=== PATIENT | female | born 2000 | race Caucasian/White ===

== ENCOUNTER 2020-06-17 12:02 | Emergency (ER) | payer OTHER ==
[2020-06-17] MEDS ORDERED: SODIUM CHLORIDE 0.9% 500 ML INFUS.BAG IV ONE (12:19)
[2020-06-17 12:25] VITALS: BP 116/75; PULSE 86; TEMP 98.5; BMI 17.7
[2020-06-17 12:38] LABS: BASO % 2.7 % (0-2.0); EOS % 0.7 % (0-4.5); HEMOGLOBIN 13.4 GM/dl (10.7-15.3); LYMPH % 27.1 % (8-40); MCH 32.1 pg (25.7-33.7); MCHC 34.2 g/dl (32.0-36.0); MEAN CELL VOLUME 93.7 fl (80-96); MEAN PLT VOLUME 8.6 fl (7.5-11.1); MONO % 5.9 % (3.8-10.2); NEUT % 63.6 % (42.8-82.8); PLATELET COUNT 202 K/MM3 (134-434); RBC 4.17 M/mm3 (3.60-5.2); WHITE BLOOD COUNT 6.1 K/mm3 (4.0-10.8)
[2020-06-17 12:55] LABS: ALBUMIN 3.9 g/dl (3.4-5.0); BILIRUBIN,TOTAL 0.6 mg/dl (0.2-1); CALCIUM 8.6 mg/dl (8.5-10); CREATININE 0.6 mg/dl (0.55-1.3); TOT PROT 6.6 g/dl (6.4-8.2)
[2020-06-17 12:56] LABS: HCG,QUALITATIVE URINE Negative
[2020-06-17] MEDS ORDERED: POTASSIUM CHLORIDE TABS 20 MEQ TABLET.ER (FP) PO ONE ×2 (13:03→13:21)
[2020-06-17] MEDS ORDERED: KCL 10 MEQ IVPB 10 MEQ/100 ML INFUS.BAG IVPB ONE (13:22)
[2020-06-17] MEDS: KCL 10 MEQ IVPB 10 MEQ/100 ML INFUS.BAG IVPB SCH ×2 (13:26→14:23)
[2020-06-17 13:29] LABS: EPITHELIAL CELLS MANY /hpf
[2020-06-17] MEDS ORDERED: SODIUM BICARBONATE 2.4 MEQ/5 ML SDVIAL IV ONE (13:43)
== END 2020-06-17 16:05 | disposition home or self-care (01) ==
LOC: FER 12:02
PROC: 3E033GC Introduction of Other Therapeutic Substance into Peripheral Vein, Percutaneous Approach (ICD-10-PCS; principal; 2020-06-17)
DX: E87.6 Hypokalemia (principal); I95.1 Orthostatic hypotension; R55 Syncope and collapse
CPT/HCPCS: 36415; 70450-TC; 80053; 81003; 81015; 82550; 84484; 84703; 85025; 93005; 99285-25

== ENCOUNTER 2021-01-08 13:59 | Emergency (ER) | payer OTHER ==
[2021-01-08 14:27] VITALS: BP 110/79; PULSE 90; TEMP 98.5; BMI 16.1
[2021-01-08] MEDS ORDERED: SODIUM CHLORIDE 0.9% 1000 ML INFUS.BAG IV ONE (15:22)
[2021-01-08 15:48] LABS: BASO % 3.6 % (0-2.0); EOS % 0.9 % (0-4.5); HEMATOCRIT 43.2 % (32.4-45.2); HEMOGLOBIN 14.6 GM/dl (10.7-15.3); LYMPH % 24.8 % (8-40); MCH 32.1 pg (25.7-33.7); MCHC 33.8 g/dl (32.0-36.0); MEAN CELL VOLUME 94.9 fl (80-96); MEAN PLT VOLUME 8.9 fl (7.5-11.1); MONO % 9.7 % (3.8-10.2); PLATELET COUNT 266 10^3/uL (134-434); RBC 4.55 M/mm3 (3.60-5.2); RDW 12.1 % (11.6-15.6); WHITE BLOOD COUNT 7.1 K/mm3 (4.0-10.8)
[2021-01-08 15:51] LABS: ALBUMIN 4.2 g/dl (3.4-5.0); BILIRUBIN,TOTAL 0.5 mg/dl (0.2-1); CALCIUM 9.9 mg/dl (8.5-10); CREATININE 0.6 mg/dl (0.55-1.3); TOT PROT 7.6 g/dl (6.4-8.2)
[2021-01-08] MEDS ORDERED: LORazepam 2 MG TABLET PO ONE (16:56)
[2021-01-08] MEDS ORDERED: LORazepam 0.5 MG TABLET ONE (16:59)
== END 2021-01-08 17:18 | disposition home or self-care (01) ==
LOC: FER 13:59
DX: R63.0 Anorexia (principal); F41.9 Anxiety disorder, unspecified
CPT/HCPCS: 36415; 80053; 84443; 85025; 99284-25